=== PATIENT | male | born 1990 | race Caucasian/White ===

== ENCOUNTER 2021-01-30 09:26 | Emergency (ER) | payer SELFPAY ==
[~2021-01-30] VITALS: Ht 172.7 cm; Wt 105.0 kg
[2021-01-30] MEDS ORDERED: FLUORESCEIN SODIUM 1MG/STRIP RIGHTEYE ONE (09:45)
[2021-01-30] MEDS ORDERED: TETRACAINE 0.5% OPHTH DROPS 4ML RIGHTEYE ONE (09:45)
[2021-01-30] MEDS ORDERED: TETANUS, DIPHTHERIA, PERTUSSIS VAC/PF 0.5ML (>7YR OLD) IM ONE (09:45)
[2021-01-30] MEDS ORDERED: HYDROCODONE/ACETAMINOPHEN 10/325MG TABLET PO ONE (11:15)
[2021-01-30 11:24] VITALS: BP 107/50
[2021-01-30] MEDS ORDERED: TOBRAMYCIN 0.3% OPHTH DROPS 5ML OP SCH (12:00)
[2021-01-30] MEDS ORDERED: T3 PO (12:31)
[2021-01-30] MEDS ORDERED: NEO/5DRO3 RIGHTEYE (12:32)
== END 2021-01-30 12:43 | disposition home or self-care (01) ==
LOC: ER 09:26
DX: S05.31XA Ocular laceration without prolapse or loss of intraocular tissue, right eye, initial encounter (principal); W22.8XXA Striking against or struck by other objects, initial encounter; Y93.89 Activity, other specified; Y92.89 Other specified places as the place of occurrence of the external cause; Y99.8 Other external cause status
CPT/HCPCS: 99284